=== PATIENT | female | born 1980 | race African-American/Black ===

== ENCOUNTER 2017-05-21 15:57 | Emergency (ER) | payer OTHER ==
[~2017-05-21] VITALS: Ht 152.4 cm; Wt 95.5 kg
[~2017-05-21 15:57] MED LIST: AMOXICILLIN500 MG OR; AMOXICILLIN500 MG PO; BACTRIM DS1 TAB PO; CIPRO500 MG OR; KEFLEX500 M1 PO; NO; NO HOME MEDS; NO MEDS; PHENERGAN25 MG/TAB PO; PRENATA3 OR; PREVPAC PO; PRILOSEC OTC20 MG OR; TRIMOX500 MG PO; ULTRAM50 M1 PO; ULTRAM50 MG OR; ULTRAM50 MG PO
[2017-05-21] MEDS ORDERED: NAPROSYN500 MG PO (18:34)
[2017-05-21] MEDS ORDERED: FLEXERIL PO (18:34)
[2017-05-21 18:47] VITALS: BP 129/78
== END 2017-05-21 18:47 | disposition home or self-care (01) | DRG 948 ==
LOC: ED 15:57
DX: G89.11 Acute pain due to trauma (principal); M54.5 Low back pain; V44.5XXA Car driver injured in collision with heavy transport vehicle or bus in traffic accident, initial encounter; Y92.410 Unspecified street and highway as the place of occurrence of the external cause

== ENCOUNTER 2018-03-05 18:23 | Emergency (ER) | payer OTHER ==
[~2018-03-05] VITALS: Ht 152.4 cm; Wt 84.0 kg
[~2018-03-05 18:23] MED LIST changes: +FLEXERIL PO; +NAPROSYN500 MG PO
[2018-03-05 19:20] LABS: INFLUENZA A NONE DETECTED (NONE DETECT); INFLUENZA B NONE DETECTED (NONE DETECT)
[2018-03-05] MEDS ORDERED: AMOXICILLIN500 MG PO (19:22)
[2018-03-05] MEDS ORDERED: ZOFRAN ODT4 MG PO (19:23)
[2018-03-05 19:35] VITALS: BP 135/77
[2018-03-05] MEDS ORDERED: GENTAMICIN15 ML/BTL OU (19:45)
== END 2018-03-05 19:35 | disposition home or self-care (01) | DRG 153 ==
LOC: ED 18:23
PROVIDERS: Emergency Medicine
DX: J02.9 Acute pharyngitis, unspecified (principal); J34.89 Other specified disorders of nose and nasal sinuses

== ENCOUNTER 2019-03-26 20:13 | Emergency (ER) | payer MEDICAID ==
[~2019-03-26] VITALS: Ht 152.4 cm; Wt 90.0 kg
[~2019-03-26 20:13] MED LIST changes: +GENTAMICIN15 ML/BTL OU; +ZOFRAN ODT4 MG PO
[2019-03-26] MEDS ORDERED: BENADRYL 50MG C50 MG PO (21:06)
[2019-03-26 21:25] VITALS: BP 139/99
== END 2019-03-26 21:25 | disposition home or self-care (01) ==
LOC: ED 20:13
DX: L56.2 Photocontact dermatitis [berloque dermatitis] (principal); L50.9 Urticaria, unspecified; X32.XXXA Exposure to sunlight, initial encounter; Y93.19 Activity, other involving water and watercraft; Y92.831 Amusement park as the place of occurrence of the external cause

== ENCOUNTER 2019-04-22 20:53 | Emergency (ER) | payer OTHER ==
[~2019-04-22] VITALS: Ht 154.9 cm; Wt 95.4 kg
[~2019-04-22 20:53] MED LIST changes: +BENADRYL 50MG C50 MG PO
[2019-04-22] MEDS ORDERED: (None)3.5 GM OD (22:28)
[2019-04-22] MEDS ORDERED: GENTAMICIN15 ML/BTL OD (22:28)
[2019-04-22 22:33] VITALS: BP 132/80
== END 2019-04-22 22:35 | disposition home or self-care (01) ==
LOC: ED 20:53
DX: H10.9 Unspecified conjunctivitis (principal)

== ENCOUNTER 2019-07-09 20:05 | Emergency (ER) | payer OTHER ==
[~2019-07-09] VITALS: Ht 154.9 cm; Wt 91.6 kg
[~2019-07-09 20:05] MED LIST changes: +(None)3.5 GM OD; +GENTAMICIN15 ML/BTL OD
[2019-07-09 21:10] LABS: HEMATOCRIT 37.3 % (37.0-47.0); HEMOGLOBIN 12.8 g/dl (12.0-16.0); IMMATURE GRANULOCYTES 0.2 % (0.0-5.0); MEAN CELL VOLUME 89.4 fL CALC (80.0-100.0); MEAN CORPUSCULAR HGB 30.7 pG CALC (26.0-32.0); MEAN CORPUSCULAR HGB CONC 34.3 g/L CALC (32.0-36.0); NEUT# 4.36 thou/uL (2.00-7.15); RED BLOOD COUNT 4.17 mill/uL (4.20-5.60); RED CELL DISTRI WIDTH 13.2 % (11.5-15.5)
[2019-07-09 23:00] VITALS: BP 137/79
== END 2019-07-09 23:00 | disposition home or self-care (01) ==
LOC: ED 20:05
PROVIDERS: Family Medicine
DX: B34.9 Viral infection, unspecified (principal); F17.290 Nicotine dependence, other tobacco product, uncomplicated; R05 Cough; R19.7 Diarrhea, unspecified; R11.2 Nausea with vomiting, unspecified

== ENCOUNTER 2019-09-19 12:50 | Emergency (ER) | payer OTHER ==
[~2019-09-19] VITALS: Ht 154.9 cm; Wt 100.0 kg
[2019-09-19 14:05] LABS: URINE BILIRUBIN - DIPSTICK NEGATIVE (NEGATIVE); URINE BLOOD DIPSTICK NEGATIVE (NEGATIVE); URINE COLOR YELLOW; URINE GLUCOSE - DIPSTICK NEGATIVE (NEGATIVE); URINE KETONE NEGATIVE (NEGATIVE); URINE LEUK ESTERASE NEGATIVE (NEGATIVE); URINE NITRITE - DIPSTICK NEGATIVE (Negative); URINE PH 5.5 (4.5-8.0); URINE PROTEIN - DIPSTICK NEGATIVE (NEG-TRACE); URINE SPECIFIC GRAVITY >=1.030
[2019-09-19] MEDS ORDERED: IBUPROFEN600 MG PO (15:29)
[2019-09-19] MEDS ORDERED: TRAMADOL HYDROC50 MG PO (15:29)
[2019-09-19 15:40] VITALS: BP 121/79
== END 2019-09-19 15:40 | disposition home or self-care (01) ==
LOC: ED 12:50
DX: S73.102A Unspecified sprain of left hip, initial encounter (principal); M16.12 Unilateral primary osteoarthritis, left hip

== ENCOUNTER 2020-10-30 18:57 | Emergency (ER) | payer OTHER ==
[~2020-10-30] VITALS: Ht 152.4 cm; Wt 85.0 kg
[~2020-10-30 18:57] MED LIST changes: +IBUPROFEN600 MG PO; +TRAMADOL HYDROC50 MG PO
[2020-10-30] MEDS ORDERED: LOPRESSOR 550 MG/TAB PO (20:01)
[2020-10-30] MEDS ORDERED: TRAMADOL HYDROC50 M1 PO (20:13)
[2020-10-30 20:25] VITALS: BP 159/74
== END 2020-10-30 20:45 | disposition home or self-care (01) ==
LOC: ED 18:57
DX: M25.552 Pain in left hip (principal); I10 Essential (primary) hypertension; F17.290 Nicotine dependence, other tobacco product, uncomplicated

== ENCOUNTER 2021-01-11 07:42 | Emergency (ER) | payer OTHER ==
[~2021-01-11] VITALS: Ht 152.4 cm; Wt 80.0 kg
[~2021-01-11 07:42] MED LIST changes: +LOPRESSOR 550 MG/TAB PO; +TRAMADOL HYDROC50 M1 PO
[2021-01-11] MEDS ORDERED: CYCLOBENZAPRINE5 MG PO (09:43)
[2021-01-11 11:34] VITALS: BP 120/65
== END 2021-01-11 11:37 | disposition home or self-care (01) ==
LOC: ED 07:42
DX: M16.12 Unilateral primary osteoarthritis, left hip (principal); I10 Essential (primary) hypertension; F17.210 Nicotine dependence, cigarettes, uncomplicated

== ENCOUNTER 2021-02-23 04:06 | Emergency (ER) | payer OTHER ==
[~2021-02-23 04:06] MED LIST changes: +CYCLOBENZAPRINE5 MG PO
[2021-02-23] MEDS ORDERED: CELEBREX100 M1 PO (07:04)
[2021-02-23 07:22] VITALS: BP 163/91
[2021-02-25] MEDS ORDERED: CELEBREX100 M1 PO (08:43)
== END 2021-02-23 07:35 | disposition home or self-care (01) ==
LOC: ED 04:06
DX: G89.29 Other chronic pain (principal); M25.552 Pain in left hip; I10 Essential (primary) hypertension; F17.200 Nicotine dependence, unspecified, uncomplicated

== ENCOUNTER 2021-10-01 20:05 | Emergency (ER) | payer OTHER ==
[~2021-10-01] VITALS: Ht 157.5 cm; Wt 84.0 kg
[~2021-10-01 20:05] MED LIST changes: +CELEBREX100 M1 PO
[2021-10-01 20:57] LABS: HEMATOCRIT 39.4 % (37.0-47.0); HEMOGLOBIN 12.8 g/dl (12.0-16.0); IMMATURE GRANULOCYTES 0.2 % (0.0-5.0); MEAN CORPUSCULAR HGB 31.4 pG CALC (26.0-32.0); MEAN CORPUSCULAR HGB CONC 32.5 g/dL CAL (32.0-36.0); NEUT# 8.7 thou/uL (2.00-7.15); RED BLOOD COUNT 4.08 mill/uL (4.20-5.60); RED CELL DISTRI WIDTH 13.6 % (11.5-15.5)
[2021-10-01 20:58] LABS: MEAN CELL VOLUME 96.6 fL CALC (80.0-100.0)
[2021-10-01] MEDS ORDERED: TORADOL PO (21:41)
[2021-10-01 22:11] VITALS: BP 146/77
== END 2021-10-01 22:50 | disposition home or self-care (01) ==
LOC: ED 20:05
PROVIDERS: Family Medicine
DX: S29.012A Strain of muscle and tendon of back wall of thorax, initial encounter (principal); I10 Essential (primary) hypertension; F17.290 Nicotine dependence, other tobacco product, uncomplicated; Z20.822 Contact with and (suspected) exposure to COVID-19; X58.XXXA Exposure to other specified factors, initial encounter

== ENCOUNTER 2022-04-06 08:56 | Emergency (ER) | payer OTHER ==
[~2022-04-06] VITALS: Ht 157.5 cm; Wt 70.0 kg
[~2022-04-06 08:56] MED LIST changes: +TORADOL PO
[2022-04-06 09:00] VITALS: BP 121/86
[2022-04-06] MEDS ORDERED: IBUPROFEN600 MG PO (09:12)
[2022-04-06] MEDS ORDERED: FLEXERIL5 M1 PO (09:12)
[2022-04-06 09:33] VITALS: BP 110/67
== END 2022-04-06 10:03 | disposition home or self-care (01) ==
LOC: ED 08:56
DX: S39.012A Strain of muscle, fascia and tendon of lower back, initial encounter (principal)

== ENCOUNTER 2022-11-28 20:30 | Emergency (ER) | payer OTHER ==
[~2022-11-28] VITALS: Ht 157.5 cm; Wt 73.2 kg
[~2022-11-28 20:30] MED LIST changes: +FLEXERIL5 M1 PO
[2022-11-28 21:14] VITALS: BP 132/78
[2022-11-28 21:16] VITALS: BP 106/80
[2022-11-28 21:27] LABS: URINE BILIRUBIN - DIPSTICK NEGATIVE (NEGATIVE); URINE BLOOD DIPSTICK NEGATIVE (NEGATIVE); URINE COLOR YELLOW; URINE GLUCOSE - DIPSTICK NEGATIVE (NEGATIVE); URINE KETONE TRACE mg/dL (NEGATIVE); URINE LEUK ESTERASE NEGATIVE (NEGATIVE); URINE PH 6.5 (4.5-8.0); URINE PROTEIN - DIPSTICK NEGATIVE (NEG-TRACE); URINE SPECIFIC GRAVITY 1.025; URINE UROBILINOGEN - DIPSTICK 0.2 E.U./dL (0.2)
[2022-11-28 21:30] VITALS: BP 118/70
[2022-11-28 21:31] LABS: URINE NITRITE - DIPSTICK NEGATIVE (Negative)
[2022-11-28 21:45] VITALS: BP 134/77
[2022-11-28 22:31] LABS: BASO% 0.5 % (0-3); EOS% 1.1 % (0-8); HEMATOCRIT 35.4 % (37.0-47.0); IMMATURE GRANULOCYTES 0.1 % (0.0-5.0); LYMPH% 28.6 % (15-41); MEAN CELL VOLUME 94.1 fL CALC (80.0-100.0); MEAN CORPUSCULAR HGB 31.9 pG CALC (26.0-32.0); MEAN CORPUSCULAR HGB CONC 33.9 g/dL CAL (32.0-36.0); MONO% 5.4 % (2-13); NEUT# 6.44 thou/uL (2.00-7.15); NEUT% 64.3 % (42-76); RED BLOOD COUNT 3.76 mill/uL (4.20-5.60); RED CELL DISTRI WIDTH 13.8 % (11.5-15.5)
[2022-11-28 22:39] LABS: ALBUMIN 3.9 g/dL (3.2-5.0); ALKALINE PHOSPHATASE 64 u/l (38-126); ANION GAP 7 (6-22 (CALC)); BILIRUBIN, TOTAL 0.2 mg/dL (0.02-1.3); BUN 9 mg/dL (7-17); BUN/CREATININE RATIO 11 (12-20 (CALC)); CARBON DIOXIDE 23 mmol/l (22-30); CHLORIDE 109 mmol/l (95-108); CREATININE 0.8 mg/dL (0.5-1.0); GFR FOR AFR.AMER. > 60 ML/MIN (>=60 (CALC)); GFR OTHER RACES > 60 ML/MIN (>=60 (CALC)); POTASSIUM 3.7 mmol/l (3.5-5.1); SGOT/AST 29 u/l (14-36); SODIUM 135 mmol/l (137-146); TOTAL PROTEIN 6.7 g/dL (6.3-8.2)
[2022-11-28] MEDS ORDERED: MIRALAX17 GM PO (22:57)
[2022-11-28 23:07] VITALS: BP 134/77
== END 2022-11-28 23:26 | disposition home or self-care (01) ==
LOC: ED 20:30
PROVIDERS: Emergency Medicine
DX: K59.00 Constipation, unspecified (principal); F17.290 Nicotine dependence, other tobacco product, uncomplicated

== ENCOUNTER 2024-06-08 22:16 | Emergency (ER) | payer OTHER ==
[~2024-06-08] VITALS: Ht 157.5 cm; Wt 68.0 kg
[~2024-06-08 22:16] MED LIST changes: +MIRALAX17 GM PO
[2024-06-08] MEDS ORDERED: KETOROLAC TROMETHAMINE 30 MG/ML SDV IV ONE (22:45)
[2024-06-08] MEDS ORDERED: SODIUM CHLORIDE 0.9% 1,000 ML IV ONE (22:45)
[2024-06-08 22:47] VITALS: BP 128/80
[2024-06-08] MEDS ORDERED: MAGNESIUM HYDROXIDE 30 ML UDC PO PRN (22:55)
[2024-06-08] MEDS ORDERED: SODIUM CHLORIDE 0.9% 1,000 ML IV PRN (22:55)
[2024-06-08] MEDS ORDERED: ACETAMINOPHEN 325 MG/TAB PO PRN (22:55)
[2024-06-08 23:00] VITALS: BP 127/82
[2024-06-08 23:15] VITALS: BP 135/87
[2024-06-08 23:23] LABS: BASO% 0.9 % (0-3); EOS% 1.7 % (0-8); HEMOGLOBIN 12.1 g/dl (12.0-16.0); IMMATURE GRANULOCYTES 0.1 % (0.0-5.0); LYMPH% 33.5 % (15-41); MEAN CELL VOLUME 94.7 fL CALC (80.0-100.0); MEAN CORPUSCULAR HGB 31.8 pG CALC (26.0-32.0); MEAN CORPUSCULAR HGB CONC 33.6 g/dL CAL (32.0-36.0); MONO% 6.9 % (2-13); NEUT# 4.68 thou/uL (2.00-7.15); NEUT% 56.9 % (42-76); RED BLOOD COUNT 3.8 mill/uL (4.20-5.60); RED CELL DISTRI WIDTH 13.4 % (11.5-15.5)
[2024-06-08] MEDS ORDERED: KETOROLAC TROMETHAMINE 30 MG/ML SDV IM ONE (23:30)
[2024-06-08 23:31] VITALS: BP 151/91
[2024-06-08 23:32] LABS: URINE BLOOD DIPSTICK Negative (NEGATIVE); URINE GLUCOSE - DIPSTICK Negative (NEGATIVE); URINE KETONE Trace mg/dL (NEGATIVE); URINE LEUK ESTERASE Negative (NEGATIVE); URINE NITRITE - DIPSTICK Negative (Negative); URINE PH 5.5 (4.5-8.0); URINE PROTEIN - DIPSTICK Negative (NEG-TRACE); URINE SPECIFIC GRAVITY 1.025
[2024-06-08 23:33] LABS: URINE COLOR Yellow
[2024-06-08 23:47] LABS: POTASSIUM 3.4 mmol/l (3.5-5.1)
[2024-06-08 23:49] LABS: BILIRUBIN, TOTAL 0.5 mg/dL (0.02-1.3)
[2024-06-09 00:15] VITALS: BP 149/93
[2024-06-09] MEDS ORDERED: TORADOL PO (00:16)
[2024-06-09 00:30] VITALS: BP 163/96
[2024-06-09 00:45] VITALS: BP 161/96
[2024-06-09] MEDS ORDERED: ENOXAPARIN SODIUM 40 MG/0.4 ML SYR SC SCH (21:00)
== END 2024-06-09 00:52 | disposition home or self-care (01) | DRG 392 ==
LOC: ED 22:16
PROVIDERS: Emergency Medicine
DX: R10.32 Left lower quadrant pain (principal); I10 Essential (primary) hypertension; F17.200 Nicotine dependence, unspecified, uncomplicated

== ENCOUNTER 2024-07-02 20:46 | Emergency (ER) | payer OTHER ==
[~2024-07-02] VITALS: Ht 152.4 cm; Wt 77.0 kg
[2024-07-02] MEDS ORDERED: NEOMYCIN-POLYMYXIN-HC OTIC SUSP. 10 ML BTL AD ONE (21:40)
[2024-07-02] MEDS ORDERED: CORTISPORIN OTI10 M2 AD (21:41)
[2024-07-02 22:00] VITALS: BP 149/88
== END 2024-07-02 22:15 | disposition home or self-care (01) | DRG 156 ==
LOC: ED 20:46
DX: H60.91 Unspecified otitis externa, right ear (principal); I10 Essential (primary) hypertension; F17.200 Nicotine dependence, unspecified, uncomplicated

== ENCOUNTER → 2024-11-25 | Emergency (ER) | payer OTHER ==
[~2024-11-25] VITALS: Ht 152.4 cm; Wt 70.0 kg
[~2024-11-25] MED LIST changes: +ASPIRIN 81 MG/TAB PO ONE; +BENZONATATE 200 MG/CAP PO ONE; +BENZONATATE200 MG PO; +CORTISPORIN OTI10 M2 AD; +KETOROLAC TROMETHAMINE 30 MG/ML SDV IV ONE; +PREDNISONE20 MG PO; +methylPREDNISolone SODIUM SUCC 125 MG/2 ML SDV IV ONE
[2024-11-25 21:16] VITALS: BP 129/67
[2024-11-25 23:00] LABS: EOS% 1.2 % (0-8); HEMATOCRIT 38.1 % (37.0-47.0); HEMOGLOBIN 12.6 g/dl (12.0-16.0); IMMATURE GRANULOCYTES 0.2 % (0.0-5.0); MEAN CELL VOLUME 94.1 fL CALC (80.0-100.0); MEAN CORPUSCULAR HGB 31.1 pG CALC (26.0-32.0); MEAN CORPUSCULAR HGB CONC 33.1 g/dL CAL (32.0-36.0); MONO% 5.8 % (2-13); NEUT% 62.8 % (42-76); RED BLOOD COUNT 4.05 mill/uL (4.20-5.60)
[2024-11-25 23:18] LABS: ALKALINE PHOSPHATASE 64 u/l (38-126); ANION GAP 7 (6-22 (CALC)); BUN 8 mg/dL (7-17); BUN/CREATININE RATIO 11 (12-20 (CALC)); CARBON DIOXIDE 26 mmol/l (22-30); CHLORIDE 106 mmol/l (95-108); CREATININE 0.8 mg/dL (0.5-1.0); ESTIMATED GFR 93 ML/MIN (>=90 (CALC)); LIPASE 267 u/l (23-300); POTASSIUM 3.6 mmol/l (3.5-5.1); SGOT/AST 26 u/l (14-36); SODIUM 135 mmol/l (137-146); TOTAL PROTEIN 6.9 g/dL (6.3-8.2)
[2024-11-25 23:20] LABS: PROTHROMBIN TIME 10.3 SECONDS (9.0-12.5)
[2024-11-25 23:21] LABS: BILIRUBIN, TOTAL 0.2 mg/dL (0.02-1.3)
== END | disposition home or self-care (01) | DRG 313 ==
LOC: ED 21:01
PROVIDERS: Internal Medicine
DX: R07.9 Chest pain, unspecified (principal); I10 Essential (primary) hypertension; F17.200 Nicotine dependence, unspecified, uncomplicated